=== PATIENT | male | born 1945 | race Caucasian/White ===

== ENCOUNTER 2023-08-18 13:57 | Outpatient (CLI) | payer MEDICARE, SELFPAY ==
[2023-08-18 15:16] LABS: Basophils Absolute Auto 0.1 K/mm3 (0.0-0.1); Basophils Percent Auto 1.1 % (0.2-1.2); Eosinophils Absolute Auto 0.5 K/mm3 (0-0.3); Eosinophils Percent Auto 6.8 % (0-4.4); Hematocrit 38.9 % (42.0-52.0); Immature Granulocyte Absolute 0.02 K/mm3 (0.00-0.031); Immature Granulocyte Percent A 0.3 % (0-0.5); Lymphocytes Absolute Auto 2.51 K/mm3 (0.9-3.2); Lymphocytes Percent Auto 35.6 % (18.3-44.2); Mean Corpuscular HGB Conc 33.4 g/dl (32-36); Mean Corpuscular Hemoglobin 32.1 pg (26-34); Mean Platelet Volume 9.6 fl (7.4-10.4); Monocytes Absolute Auto 0.4 K/mm3 (0.1-0.6); Monocytes Percent Auto 5.2 % (2.6-8.5); Neutrophils Absolute Auto 3.6 K/mm3 (1.3-6.7); Platelet Count Result 279 k/mm3 (150-375); Red Blood Count 4.05 M/mm3 (4.6-6.20); Red Cell Distribution Width 13.2 % (11.5-14.5); White Blood Count 7.1 K/mm3 (4.5-10.0)
[2023-08-18 15:24] LABS: Urine Cotinine NEGATIVE
[2023-08-18 15:41] LABS: Albumin Level 4.5 g/dL (3.5-5.1); Estimated Glomerular Filt Rate > 60; Glucose 99 mg/dL (65-110)
[2023-08-18 15:43] LABS: Hemoglobin A1C 5.4 % (<5.7)
== END 2023-08-18 13:58 | disposition home or self-care (01) ==
LOC: ANHSURGERY 14:04
PROVIDERS: PCP Internal Medicine; Visit Provider Orthopaedic Surgery
DX: Z01.818 Encounter for other preprocedural examination (principal); M17.12 Unilateral primary osteoarthritis, left knee
CPT/HCPCS: 80307; 82040; 82565; 82947; 83036; 85025; 86850; 86900; 86901

== ENCOUNTER 2023-08-24 00:26 | Day surgery (SDC) | payer MEDICARE, SELFPAY ==
--- NOTE | 2023-08-18 13:39 | PC.NURSE ---
PRE-OP INSTRUCTIONS, PLEASE READ CAREFULLY Report to the Outpatient Waiting Room, entrance under the green pavilion located off [facility], at time _0600_ on date _08/24/23_. Planned Procedure Time: _0730_. PACK A SMALL OVERNIGHT BAG AND LEAVE IN THE CAR ALONG WITH YOUR WALKER Time changes happen often and if your time is changed the preop area will call you the afternoon before. - You and your visitor will be asked to self-screen and do not enter if you have any COVID symptoms. - A mask is optional within the hospital at this time. -VISITING HOURS 8AM-8PM Patients may have clear liquids (water, carbonated beverages, clear teas, apple juice) until 3 hours prior to surgery (0430 AM) with a maximum of 20 ounces. - No food from midnight until time of surgery Take the following medications with a SIP of water the morning of surgery: _AMLODIPINE, & DIAZEPAM, PAIN PILL IF NEEDED_ DO NOT STOP ANY OF YOUR OTHER PRESCRIPTION MEDICATIONS PRIOR TO SURGERY ?EXCEPT THE FOLLOWING Medications to discontinue per physician ___N/A___, Date to take last dose Please no make-up, nail venezuelan, hairspray, perfume, deodorant, or body powder the day of surgery. No jewelry (including any body piercings) or valuables the day of surgery, leave them at home. Please take a shower or bath the night before, or the morning of, surgery with an antibacterial soap. Wear comfortable, loose fitting clothing. - Jewelry must be removed prior to entering the operating room. Rings and piercings that are not removed may be cut off. - The hospital will not accept responsibility for valuables. - Please leave all valuables, including medications, at home the day of surgery. If you are going home after surgery, a licensed drivers' cash clerk must drive you home. - NO public transportation without another adult if you receive anesthesia. - We recommend that an adult stay with you for 24 hours following discharge. - We also recommend that you do not drive, make important decision, drink alcoholic beverages, or take any drugs that were not prescribed by your health care provider for at least 24 hours after your discharge time. Follow any additional instructions given to you from your surgeon. If you or anyone in your household have experienced Covid symptoms in the past week, please notify your surgeon or the nurse liaison at the phone number below for possible testing. Instructions given to _PATIENT & SPOUSE_and asked if any additional questions and then verbalized understanding. Patient advised to call surgeon office or pre surgery nurse liaison [phone] if any additional questions.
[2023-08-18 14:21] VITALS: BP 172/64; PULSE 60; RESP 20; TEMP 37.1; O2SAT 97; BMI 39.9
--- NOTE | 2023-08-20 15:32 | PM.IMHP ---
H&P: HPI History of Present Illness Date/Time: 08/20/23 15:32 Chief Complaint: Pain and osteoarthritis LEFT Knee Review of Systems Musculoskeletal: Musculoskeletal: Reports arthralgias, Reports joint swelling and Reports stiffness REPLACED BY [facility] Past Medical History Medical History (Updated 08/20/23 @ 15:35 by Jovan Galeano MD) Heart disease Hyperlipidemia Hypertension Prostate disorder Surgical History Surgical History History of appendectomy History of back surgery History of knee surgery left Family History Family History Father Cancer Sibling Cancer Leukemia Mother Heart disease Social History Social History Smoking status: Former smoker Tobacco type: cigarettes Second hand tobacco smoke exposure: No Smoking end date: 03/16/74 Additional smoking assessment comments: UNABLE TO RECALL SMOKING HX-DENIES ALL FORMS OF TOBACCO USE Alcohol intake: never Substance use: never Substance use type: does not use Do You Feel Safe in your Home?: Yes Lack of Transportation: No Lack of Food: Never True Current Housing: I Have Housing Concerned About Future Housing: No Difficulty Paying Gas/Electric Bills: No Difficulty Paying for Meds: No Currently Unemployed: No Education: High School Diploma/GED Difficulty w/ Childcare or Family Care: No Living arrangements: with family Occupation/Education: retired Spiritual care concerns: No Meds Home Medications and Allergies Home Medications Medication Instructions Recorded Confirmed Type amlodipine 10 mg tablet 10 mg PO DAILY 01/14/23 08/18/23 History atorvastatin 40 mg tablet 40 mg PO DAILY 01/14/23 08/18/23 History diazepam 5 mg tablet 5 mg PO BID PRN Anxiety 01/14/23 08/18/23 History fenofibrate 160 mg tablet 160 mg PO DAILY 01/14/23 08/18/23 History finasteride 5 mg tablet 5 mg PO DAILY 01/14/23 08/18/23 History hydrocodone 10 mg-acetaminophen 1 tablet PO Q6H PRN Pain 01/14/23 08/18/23 History 325 mg tablet tamsulosin 0.4 mg capsule 0.4 mg PO QHS 01/14/23 08/18/23 History losartan 50 mg tablet 50 mg DAILY 08/18/23 08/18/23 History Allergies Allergy/AdvReac Type Severity Reaction Status Date / Time No Known Allergies Allergy Verified 08/18/23 14:15 Exam Narrative: Patient has pain with manipulation. ROM 5-110. Varus deformity. NVI Eyes: General: appearance normal, both eyes and all related structures Neck: Neck: supple Resp: Effort & Inspection: normal respiratory effort Cardio: Rate: regular rate Rhythm: regular rhythm Assessment and Plan Assessment and plan (1) Osteoarthritis of knees, bilateral: Code(s): M17.0 - Bilateral primary osteoarthritis of knee Status: Acute (2) Osteoarthritis of left knee: Code(s): M17.12 - Unilateral primary osteoarthritis, left knee Status: Acute Assessment and Plan: Patient has Osteoarthritis Left knee. He has failed conservative treatment. Will proceed with LEFT TOTAL KNEE ARTHROPLASTY. Discussed risks, benefits, limitations and alternatives in detail. He agrees and understands.
[2023-08-24] VITALS (17 sets, daily range): BP systolic 145–168; BP diastolic 42–71; PULSE 66–81; RESP 12–18; TEMP 36.1–37.2; O2SAT 94–100
--- NOTE | ~2023-08-24 | XR_ITS ---
Left Knee Technique: Portable AP and crosstable lateral views Clinical History: Status post TKR Findings: Patient is status post total knee replacement. Orthopedic hardware alignment appears anatom ic. No hardware complication is evident. Subcutaneous emphysema and swelling is likely postoperative in nature. No acute osseous fracture is seen. Impression: Status post total knee replacement, without evidence of hardware complication. Reviewed, dictated and finalized at location . Impression: Status post total knee replacement, without evidence of hardware complication.
[2023-08-24] MEDS: LACTATED RINGERS 1,000 ML 30 ML IV CONT ×2 (06:10→10:08)
[2023-08-24] MEDS: VANCOMYCIN 1,750 MG/NS 500 ML BAG 250 MG IVPB (06:10)
[2023-08-24] MEDS: ACETAMINOPHEN 500 MG TABLET 1000 MG PO (06:30)
[2023-08-24] MEDS: TRANEXAMIC ACID 1,000MG/ISO100 1,000 MG/100 ML BAG 200 MG IVPB (06:30)
--- NOTE | 2023-08-24 06:44 | WPDHPUPDATE1 ---
History and Physical Update Update Date/Time: 08/24/23 06:44 History and Physical has been reviewed, including an updated exam of the patient. There are NO changes in the patient's condition. Risks, benefits, and alternatives have been discussed and questions answered. Patient agrees to proceed with procedure.
--- NOTE | 2023-08-24 06:56 | WPDANESEPPF ---
Anes - Initial Pre Proc Eval Procedure: Operation Date: 08/24/23 07:30 Proposed Procedures p Left Total Knee Arthroplasty - Jovan Galeano MD Date/Time: 08/24/23 06:56 Surgeon: Jovan Galeano MD Pre Op Diagnosis: O A Lt Knee Patient Data Age: 78 Gender: M Height: 1.73 m Weight: 119.8 kg Last Vital Signs Temp 98.8 F 08/18/23 14:21 Pulse 60 08/18/23 14:21 Resp 20 08/18/23 14:21 BP 172/64 H 08/18/23 14:21 Pulse Ox 97 08/18/23 14:21 O2 Del Method Room Air 08/18/23 14:21 Allergies Allergy/AdvReac Type Severity Reaction Status Date / Time No Known Allergies Allergy Verified 08/18/23 14:15 Home Medications Medication Instructions Recorded Confirmed Type amlodipine 10 mg tablet 10 mg PO DAILY 01/14/23 08/18/23 History atorvastatin 40 mg tablet 40 mg PO DAILY 01/14/23 08/18/23 History diazepam 5 mg tablet 5 mg PO BID PRN Anxiety 01/14/23 08/18/23 History fenofibrate 160 mg tablet 160 mg PO DAILY 01/14/23 08/18/23 History finasteride 5 mg tablet 5 mg PO DAILY 01/14/23 08/18/23 History hydrocodone 10 mg-acetaminophen 1 tablet PO Q6H PRN Pain 01/14/23 08/18/23 History 325 mg tablet tamsulosin 0.4 mg capsule 0.4 mg PO QHS 01/14/23 08/18/23 History losartan 50 mg tablet 50 mg DAILY 08/18/23 08/18/23 History rivaroxaban 10 mg tablet (Xarelto) 10 mg PO DAILY PE prophylaxis s/p 08/21/23 Rx joint replacement #10 tabs Patient hx anesthesia problems: none Family hx anesthesia problems: none Results Review: All pre-operative results and documents have been reviewed as part of the pre-operative evaluation. [facility] Past Medical History Medical History (Updated 08/20/23 @ 15:35 by Jovan Galeano MD) Heart disease Hyperlipidemia Hypertension Prostate disorder Surgical History Surgical History History of appendectomy History of back surgery History of knee surgery left Family History Family History Father Cancer Sibling Cancer Leukemia Mother Heart disease Social History Social History Smoking status: Former smoker Tobacco type: cigarettes Second hand tobacco smoke exposure: No Smoking end date: 03/16/74 Additional smoking assessment comments: UNABLE TO RECALL SMOKING HX-DENIES ALL FORMS OF TOBACCO USE Alcohol intake: never Substance use: never Substance use type: does not use Do You Feel Safe in your Home?: Yes Lack of Transportation: No Lack of Food: Never True Current Housing: I Have Housing Concerned About Future Housing: No Difficulty Paying Gas/Electric Bills: No Difficulty Paying for Meds: No Currently Unemployed: No Education: High School Diploma/GED Difficulty w/ Childcare or Family Care: No Living arrangements: with family Occupation/Education: retired Spiritual care concerns: No Anes - Eval Final PreProcedure Day of Procedure 08/24/23 06:56 Patient weight: overweight Heart: regular rate and rhythm Lungs: clear to auscultation Airway: Mallampati scale and special considerations (Edentulous. ) Neurological: alert and oriented Last oral intake: >/= 8 hours ASA classification: II Emergent: no Anesthetic plan: proceed Anesthesia type and monitoring: general ETT Other findings: EKG w NSR. HTN, hyperlipidemia, noncompliant w CPAP. Results Review: All pre-operative results and documents have been reviewed as part of the pre-operative evaluation. Informed Consent: The patient's anesthetic plan and its attendant risks and benefits were discussed with the patient/family/POA. Questions were solicited and answers provided to the satisfaction of the patient/family/POA.
[2023-08-24] MEDS: SODIUM CHLORIDE 0.9% IV 37.7 ML, MORPHINE SULFATE INJ (*CRX) 2 MG, ROPivacaine HCL 1% 2... INFILTRATE (07:30)
[2023-08-24] MEDS: ceFAZolin 3 GM/D5W 100 ML 100 ML IVPB (07:38)
--- NOTE | 2023-08-24 07:39 | WPDANESPNB ---
Anes - Peripheral Nerve Block Date/Time: 08/24/23 07:39 I have discussed with the patient/family/POA the placement of a peripheral nerve block for post-operative pain management, including associated risks, benefits, complications, and side effects. Alternative methods of post-operative analgesia were detailed. Questions were solicited and answers provided to the satisfaction of the patient/family/POA. Time-Out: A pre-procedural Time-Out was completed immediately before starting the procedure and confirmed: Patient Identification, Site, Procedure, Patient Position and the Availability of Requisite Equipment. Clinical Indications: Acute post-operative pain management requested by the operative surgeon. Nerve Block Insertion Note Anes-nerve block: adductor canal left Patient position: supine Skin prep: chlorhexidine Needle: 22 gauge, stimulating, insulated echogenic needle. Needle length: 80 mm Technique: ultrasound Injectate: other (Bupiv 0.5% 15 mls. ) Observations: tolerated well Complications: none Procedure start time:: 724 Procedure end time:: 729
--- NOTE | 2023-08-24 09:37 | W.PM.PROC2 ---
Procedure Note - Detailed Date of Procedure 08/24/23 Pre-op Diagnosis Osteoarthritis Left Knee Post-op Diagnosis Same Procedure Performed LEFT total knee arthroplasty Surgeon Jovan Galeano MD Anesthesia General Indications Pain and Arthritis Description of Procedure The patient was brought to operating room #9. A general anesthetic was administered. Placed on the operating table and sterilely prepped and draped in usual manner. A longitudinal incision was made. Tourniquet inflated to 300 mmHg for a total of 60 minutes. Dissection was carried down to the fascia. Medial parapatellar incision was made and the patella subluxated laterally. Patella cut from 28 to 18 mm and sized for a 37 mm button. The tibia was cut perpendicular to the long axis and femur cut in 5 degrees of valgus. A 72.5 femur trialed. 75 tibia was felt to fit the best. The soft tissues balanced, hemostasis obtained. All [address], 75 tibia, 72.5 femur, 37 mm patella, and 11 mm poly. Motion was 0-125 degrees with good stability in both flexion and extension. The wound was closed with #1 Vicryl, #1 Quill, 2-0 Vicryl and kristine. Implants [employer] Estimated Blood Loss 200 Drains No Packing No Pathology None sent Complications No immediate complications Condition Stable Disposition PACU [facility] Billing Surgery - Charge Forward: Surgery Billing ([id number] Total Knee)
[2023-08-24] MEDS: TRANEXAMIC ACID 1,000 MG/10 ML AMPUL 1000 MG IV PUSH (09:41)
[2023-08-24] MEDS: ceFAZolin SODIUM 1 GM VIAL 2 GM IV PUSH (09:45)
--- NOTE | 2023-08-24 10:38 | SUR.PHASEI ---
1038: Simple mask removed.
[2023-08-24] MEDS: fentaNYL CITRATE INJ (*CRX) 100 MCG/2 ML VIAL 25 MCG IV PUSH ×4 (10:43→11:11)
--- NOTE | 2023-08-24 11:47 | ADMGEN ---
This patient, Osei Perkins, was admitted to Medical Room 255-01. Patient/family oriented to hospital policies and general routines including ID bracelet, bed and alarms, visiting hours, pain management, procedures, bathroom and other care routines, personal items, smoking policy, room service/diet, and visiting hours. Information on how to activate the Rapid Response Team has been discussed. Patient/Family are encouraged to report perceived risks to care and to ask questions if they do not understand what they are told or what they should do.
[2023-08-24] MEDS: HYDROcodone/acetaminophen (*CRX) 10-325 MG TABLET 1 TAB PO ×2 (13:40→19:49)
--- NOTE | 2023-08-24 14:55 | PM.IMCN ---
Assessment and Plan Assessment and plan (1) Osteoarthritis of left knee: Code(s): M17.12 - Unilateral primary osteoarthritis, left knee Status: Acute (2) Morbid obesity: Code(s): E66.01 - Morbid (severe) obesity due to excess calories Status: Acute (3) Prostate disorder: Code(s): N42.9 - Disorder of prostate, unspecified Status: Acute (4) Hyperlipidemia: Code(s): E78.5 - Hyperlipidemia, unspecified Status: Acute (5) Hypertension: Code(s): I10 - Essential (primary) hypertension Status: Acute Plan LT Knee osteoarthritis Left knee total arthroplasty 08/23 pain control cbc/bmp in the am PT/OT PPI NSAIDS SCD's Eliquis for DVT prophylaxis Incentive spirometer while awake Hypertension Mild hypertensive Resume patient's losartan and amlodipine BP per unit protocol likely secondary to pain Hydralazine p.r.n. if needed HX HLD: Resumed home medications HX BPH: Resumed Flomax and Proscar monitor for urinary retention Code status: Full code per patient DVT prophylaxis: Eliquis Stress ulcer prophylaxis: Protonix 40 daily PT/OT notes: PT/OT Disposition: Patient was admitted to the medical unit post surgical left knee arthroplasty tolerated procedure well is working with PT/OT with well-controlled pain hospitalist consulted for medical management he has had some hypertension likely secondary to pain resumed home BP medications can add hydralazine if needed. HPI Date of Consult Consult date: 08/24/23 Requesting Physician: Jovan Galeano MD Primary Care Provider: Gurpreet Dela Cruz, Consult Narrative Reason for consult: Medical management Narrative: Osei Pekrins is a 78 year old male who was admitted for osteoarthritis of the left knee and underwent a total left knee arthroplasty with Dr. Galeano earlier today. Patient does report past medical history of hypertension, HLD, and BPH. Patient seen resting in bed in no acute distress surgical site wrapped no signs of erythema or bleeding reports pain at a 4/10. Patient did have some hypertension last BP 164/42, home BP medications resumed will add p.r.n. hydralazine for systolic over 160. Other vitals stable temp of 97.3?, heart rate 81 respirations 16 and 96% SpO2 on room air. Patient up and ambulatory with a wheeled walker and PT/OT. Of note patient is hard of hearing Review of Systems Review of Systems: All systems reviewed & are unremarkable except as noted in HPI and below PMFSH Past Medical History Medical History (Updated 08/24/23 @ 15:15 by Cele Wisdom APRN) Heart disease Hyperlipidemia Hypertension Prostate disorder Surgical History Surgical History History of appendectomy History of back surgery History of knee surgery left Family History Family History Father Cancer Sibling Cancer Leukemia Mother Heart disease Social History Social History Smoking status: Never smoker Tobacco type: cigarettes Second hand tobacco smoke exposure: No Smoking end date: 03/16/74 Additional smoking assessment comments: UNABLE TO RECALL SMOKING HX-DENIES ALL FORMS OF TOBACCO USE Alcohol intake: never Substance use: never Substance use type: does not use Do You Feel Safe in your Home?: Yes Lack of Transportation: No Lack of Food: Never True Current Housing: I Have Housing Concerned About Future Housing: No Difficulty Paying Gas/Electric Bills: No Difficulty Paying for Meds: No Currently Unemployed: No Education: High School Diploma/GED Difficulty w/ Childcare or Family Care: No Living arrangements: with family Occupation/Education: retired Spiritual care concerns: No Meds Home Medications and Allergies
[2023-08-24] MEDS: CELECOXIB 200 MG CAPSULE PO (16:54)
[2023-08-24] MEDS: RIVAROXABAN 10 MG TABLET PO (16:54)
[2023-08-24] MEDS: ceFAZolin 2 GM/D5W 50 ML 2 GM/50 ML BAG IVPB ×2 (16:54→23:59)
[2023-08-24] MEDS: SENNA/DOCUSATE SODIUM TABLET 2 TAB PO (16:54)
[2023-08-24] MEDS: TAMSULOSIN HCL 0.4 MG CAPSULE PO (19:50)
[2023-08-24] MEDS: CYCLOBENZAPRINE HCL 10 MG TABLET PO (19:50)
[2023-08-24] MEDS: FAMOTIDINE 20 MG TABLET PO (19:50)
[2023-08-24] MEDS: HYDROcodone/acetaminophen (*CRX) 5-325 MG TABLET 1 TAB PO (23:59)
[2023-08-25 00:45] VITALS: BP 157/52; PULSE 69; RESP 16; TEMP 36.9; O2SAT 95
[2023-08-25 04:38] VITALS: BP 155/64; PULSE 78; RESP 16; TEMP 36.6; O2SAT 97
[2023-08-25] MEDS: HYDROcodone/acetaminophen (*CRX) 10-325 MG TABLET 1 TAB PO ×2 (04:42→11:00)
[2023-08-25 05:33] LABS: Basophils Percent Auto 0.1 % (0.2-1.2); Hematocrit 33.1 % (42.0-52.0); Hemoglobin 10.9 g/dL (14.0-18.0); Immature Granulocyte Absolute 0.06 K/mm3 (0.00-0.031); Immature Granulocyte Percent A 0.5 % (0-0.5); Lymphocytes Absolute Auto 0.99 K/mm3 (0.9-3.2); Lymphocytes Percent Auto 8.6 % (18.3-44.2); Mean Corpuscular HGB Conc 32.9 g/dl (32-36); Mean Corpuscular Hemoglobin 31.6 pg (26-34); Mean Corpuscular Volume 95.9 fl (80-100); Mean Platelet Volume 9.9 fl (7.4-10.4); Monocytes Absolute Auto 0.6 K/mm3 (0.1-0.6); Monocytes Percent Auto 5.4 % (2.6-8.5); Neutrophils Absolute Auto 9.9 K/mm3 (1.3-6.7); Neutrophils Percent Auto 85.4 % (45.5-73.1); Platelet Count Result 271 k/mm3 (150-375); Red Blood Count 3.45 M/mm3 (4.6-6.20); Red Cell Distribution Width 13.2 % (11.5-14.5); White Blood Count 11.6 K/mm3 (4.5-10.0)
[2023-08-25 06:02] LABS: Anion Gap 5 mmol/L (4-12); Blood Urea Nitrogen 18 mg/dL (9-20); Carbon Dioxide 25 mmol/L (22-30); Chloride 108 mmol/L (98-107); Estimated CRCL calculation 64 ml/min; Estimated Glomerular Filt Rate > 60; Glucose 143 mg/dL (65-110); Potassium 3.9 mmol/L (3.4-5.0); Sodium 138 mmol/L (137-145)
--- NOTE | 2023-08-25 06:56 | PM.PNORT ---
Progress Note: A&P Assessment and Plan (1) Osteoarthritis of left knee: Code(s): M17.12 - Unilateral primary osteoarthritis, left knee Status: Acute Assessment and Plan: POD #1 S/P TKA for Osteoarthritis. Mobilize today. (2) History of knee replacement procedure of left knee: Code(s): Z96.652 - Presence of left artificial knee joint Status: Acute Subjective Subjective Date/Time Seen: 08/25/23 06:56 Post Op day: 1 Principal diagnosis: Left Total Knee for Osteoarthritis Review of Systems Musculoskeletal: Musculoskeletal: Reports arthralgias, Reports joint swelling and Reports limited range of motion Exam Narrative: NVI. Wiggles toes. Dressing intact. Objective Data Vital Signs Vital Signs: Vital Signs - 24 hr 08/24/23 07:05 08/24/23 10:08 08/24/23 10:18 Temperature 98.1 F 98.9 F Pulse Rate 66 71 75 Respiratory Rate 18 13 16 Blood Pressure 168/70 H 145/59 H 148/56 H Pulse Oximetry 97 98 Oxygen Delivery Room Air Simple Face Mask Simple Face Mask Oxygen Flow Rate 6 8 08/24/23 10:20 08/24/23 10:35 08/24/23 10:50 Temperature Pulse Rate 74 70 71 Respiratory Rate 14 13 12 Blood Pressure 159/62 H 166/60 H 166/62 H Pulse Oximetry 99 100 95 Oxygen Delivery Simple Face Mask Simple Face Mask Room Air Oxygen Flow Rate 8 8 08/24/23 11:05 08/24/23 11:20 08/24/23 11:35 Temperature 99.0 F Pulse Rate 73 74 73 Respiratory Rate 12 18 12 Blood Pressure 168/60 H 162/71 H 165/57 H Pulse Oximetry 95 96 96 Oxygen Delivery Room Air Room Air Room Air Oxygen Flow Rate 08/24/23 11:50 08/24/23 12:05 08/24/23 12:35 Temperature 97 F L 98.1 F 98.0 F Pulse Rate 73 73 72 Respiratory Rate 16 16 16 Blood Pressure 155/54 H 160/46 H 154/47 H Pulse Oximetry 95 94 94 Oxygen Delivery Oxygen Flow Rate 08/24/23 13:12 08/24/23 13:35 08/24/23 14:25 Temperature 97.3 F L Pulse Rate 81 Respiratory Rate 16 Blood Pressure 164/42 H Pulse Oximetry 96 Oxygen Delivery Room Air Room Air Oxygen Flow Rate 08/24/23 15:56 08/24/23 17:24 08/24/23 11:40 Temperature 98.6 F Pulse Rate 78 Respiratory Rate 16 Blood Pressure 161/46 H Pulse Oximetry 95 97 97 Oxygen Delivery Room Air Room Air Oxygen Flow Rate 08/24/23 20:00 08/24/23 21:24 08/25/23 00:45 Temperature 98.7 F 98.5 F Pulse Rate 72 69 Respiratory Rate 18 16 Blood Pressure 157/60 H 157/52 H Pulse Oximetry 94 95 Oxygen Delivery Room Air Oxygen Flow Rate 08/25/23 04:38 Temperature 97.8 F Pulse Rate 78 Respiratory Rate 16 Blood Pressure 155/64 H Pulse Oximetry 97 Oxygen Delivery Oxygen Flow Rate Intake/Output Intake/Output: Intake & Output 08/22/23 08/23/23 08/24/23 08/25/23 23:59 23:59 23:59 23:59 Intake Total 1510 400 Output Total 600 950 Balance 910 -550 Meds/Results Medications: Active Medications Generic Name Dose Route Start Last Admin Trade Name Freq PRN Reason Stop Dose Admin Hydrocodone Bitart/Acetaminophen 1 tab 08/24/23 11:39 08/25/23 04:42 Hydrocodone/Acetaminophen (*Crx) 10-325 Mg Tablet PO 1 tab Q6H PRN Administration Pain Hydrocodone Bitart/Acetaminophen 1 tab 08/24/23 11:39 08/24/23 23:59 Hydrocodone/Acetaminophen (*Crx) 5-325 Mg Tablet PO 1 tab Q4H PRN Administration Pain Rated 4-6 Amlodipine Besylate 10 mg 08/25/23 09:00 Amlodipine Besylate 5 Mg Tablet PO DAILY KT Atorvastatin Calcium 40 mg 08/25/23 09:00 Atorvastatin 40 Mg Tablet PO DAILY KT Celecoxib 200 mg 08/24/23 17:00 08/24/23 16:54 Celecoxib 200 Mg Capsule PO 200 mg BIDWM KT Administration Cyclobenzaprine HCl 10 mg 08/24/23 11:39 08/24/23 19:50 Cyclobenzaprine Hcl 10 Mg Tablet PO 10 mg Q8H PRN Administration Spasms Diphenhydramine HCl 25 mg 08/24/23 11:39 Diphenhydramine Hcl Inj 50 Mg/Ml Vial IV PUSH Q6H PRN Itching Famotidine 20 mg 08/24/23 21:00 0
--- NOTE | 2023-08-25 06:58 | PM.DS ---
DS: Admitting Diagnosis Discharge Date 08/24/23 Admitting Diagnosis Left Knee Osteoarthritis DS: Discharge Diagnosis Discharge Diagnosis (1) History of knee replacement procedure of left knee: Code(s): Z96.652 - Presence of left artificial knee joint Status: Acute Assessment and Plan: Patient underwent Left TKA for osteoarthritis. Will mobilize today and plan on discharge if ambulatory (2) Osteoarthritis of left knee: Code(s): M17.12 - Unilateral primary osteoarthritis, left knee Status: Acute DS: Summary Hospital Course Hospital Course: Patient underwent TKA for osteoarthritis. Some pain issues. Status at Discharge Functional status at discharge: uses cane/walker Time Spent with Patient Time attestation: Total time spent providing and/or coordinating discharge services: Exam Narrative: NVI. Wiggles toes. Dressing intact. DS: Data Data Completed and Pending Labs on day of discharge: Labs from last 24 hours 08/25/23 05:12 WBC 11.6 H RBC 3.45 L Hgb 10.9 L Hct 33.1 L MCV 95.9 MCH 31.6 MCHC 32.9 RDW 13.2 Plt Count 271 MPV 9.9 Immature Gran % (Auto) 0.5 Neut % (Auto) 85.4 H Lymph % (Auto) 8.6 L [place] % (Auto) 5.4 Eos % (Auto) 0.0 Baso % (Auto) 0.1 L Lymph # (Auto) 0.99 [place] # (Auto) 0.6 Eos # (Auto) 0.0 Baso # (Auto) 0.0 Abs Immat Gran (auto) 0.06 H Absolute Neuts (auto) 9.9 H Absolute Nucleated RBC 0.000 Nucleated RBC % 0.0 Sodium 138 Potassium 3.9 Chloride 108 H Carbon Dioxide 25 Anion Gap 5 BUN 18 Creatinine 1.10 Estim Creat Clear Calc 64 Estimated GFR > 60 Glucose 143 H Calcium 9.0 Discharge Plan Discharge Patient Disposition: Home, Self-Care Discharge Instructions: Dr. Jovan Galeano M.D [address] [address] POST-OPERATIVE DISCHARGE INSTRUCTIONS TOTAL KNEE ARTHROPLASTY 1. When resting, do not rest in the chair.When resting, lie on your back, with back flat on the couch or bed, with leg elevated above heart to minimize swelling. You may put a pillow under your head. . Significant swelling could indicate a blood clot and if this occurs call the office (or go to the ER) to have a venous ultrasound. Therefore, do not rest in a chair. 2. At least five times a day spend several minutes stretching your knee into flexion while sitting in the chair and also stretching your knee out straight The abilities to bend your knee fulling and straighten your knee fully are two most important knee functions to focus on during your recovery. 3. It is ok to sit in chair to eat, use the toilet and receive a guest and to do your stretching exercises, but, sitting in a chair will cause your leg to swell. Therefore, avoid additional time sitting in the chair. and don't rest in the chair. 4. Wound Care: Nursing will give you an additional Mepilex dressing at the time of discharge. Patient to remove the dressing and apply a new Mepilex dressing at home 7 days after surgery and leave the dressing on until seen in office. 5. May shower with a Mepilex dressing in place.The water will run off the dressing. 6. Unless you are told otherwise, you may put full weight on your operated leg. Use a walker for balance and practice walking as normally as you can, ideally for a few minutes every hour while you are awake. 7. I would advise against putting ice packs on your knee incision. Ice constricts blood flow which can impar healing of the knee incision. IMPORTANT: Remember not to sit in the chair for more than 30 minutes at a time. As a rule, during the first 14 days after surgery, only sit in the chair to work on the chair knee bending stretch exercise, for meals or for use of the restroom. Sitting in the chair promotes significant swelling in the knee and leg which will make your knee stiff and more painful and which simulates having a blood clot in the veins of the leg. If this type of
[2023-08-25 08:35] VITALS: BP 168/52; PULSE 64; RESP 18; TEMP 36.3; O2SAT 98
[2023-08-25] MEDS: FINASTERIDE 5 MG TABLET PO (08:42)
[2023-08-25] MEDS: ATORVASTATIN 40 MG TABLET PO (08:42)
[2023-08-25] MEDS: FENOFIBRATE 160 MG TABLET PO (08:42)
[2023-08-25] MEDS: CELECOXIB 200 MG CAPSULE PO (08:42)
[2023-08-25] MEDS: PANTOPRAZOLE 40 MG TABLET PO (08:42)
[2023-08-25] MEDS: LOSARTAN POTASSIUM 50 MG TABLET PO (08:42)
[2023-08-25] MEDS: SENNA/DOCUSATE SODIUM TABLET 2 TAB PO (08:42)
[2023-08-25] MEDS: amLODIPine BESYLATE 5 MG TABLET 10 MG PO (08:42)
[2023-08-25] MEDS: FAMOTIDINE 20 MG TABLET PO (08:42)
[2023-08-25] MEDS: ceFAZolin 2 GM/D5W 50 ML 2 GM/50 ML BAG IVPB (08:43)
--- NOTE | 2023-08-25 12:07 | P.PNAN_ITS ---
Anes - Prog Note Post-Op Date/Time: 08/25/23 12:07 Cardiovascular status: normal Respiratory status: normal Airway patency: baseline Mental status: baseline Post-Op hydration status: normal Vital Signs: Last Vital Signs Temp 36.3 C L 08/25/23 08:35 Pulse 64 08/25/23 08:35 Resp 18 08/25/23 08:35 BP 168/52 H 08/25/23 08:35 Pulse Ox 98 08/25/23 08:35 O2 Del Method Room Air 08/25/23 08:45 O2 Flow Rate 8 08/24/23 10:35 Pain Score (VAS): 0 I/O: Intake & Output 08/24/23 08/25/23 08/25/23 23:59 07:59 15:59 Intake Total 290 400 240 Output Total 950 Balance 290 -550 240 Laboratory Tests 08/25/23 05:12 08/25/23 05:12 08/25/23 05:12 WBC 11.6 H RBC 3.45 L Hgb 10.9 L Hct 33.1 L MCV 95.9 MCH 31.6 MCHC 32.9 RDW 13.2 Plt Count 271 MPV 9.9 Immature Gran % (Auto) 0.5 Neut % (Auto) 85.4 H Lymph % (Auto) 8.6 L [place] % (Auto) 5.4 Eos % (Auto) 0.0 Baso % (Auto) 0.1 L Lymph # (Auto) 0.99 [place] # (Auto) 0.6 Eos # (Auto) 0.0 Baso # (Auto) 0.0 Abs Immat Gran (auto) 0.06 H Absolute Neuts (auto) 9.9 H Absolute Nucleated RBC 0.000 Nucleated RBC % 0.0 Sodium 138 Potassium 3.9 Chloride 108 H Carbon Dioxide 25 Anion Gap 5 BUN 18 Creatinine 1.10 Estim Creat Clear Calc 64 Estimated GFR > 60 Glucose 143 H Calcium 9.0 Post-procedural complaints: none Patient Feedback: Patient satisfied with anesthetic care.
== END 2023-08-25 12:07 | disposition home or self-care (01) ==
LOC: ANHSURGERY 05:41 → ANH2MED 11:45
PROVIDERS: PCP Internal Medicine; Visit Provider Orthopaedic Surgery
PROC: (CPT 27447; principal; 2023-08-24 07:30)
DX: M17.12 Unilateral primary osteoarthritis, left knee (principal); G89.18 Other acute postprocedural pain; I11.9 Hypertensive heart disease without heart failure; E78.5 Hyperlipidemia, unspecified; N42.9 Disorder of prostate, unspecified; Z87.891 Personal history of nicotine dependence; E66.01 Morbid (severe) obesity due to excess calories; Z68.41 Body mass index [BMI] 40.0-44.9, adult
CPT/HCPCS: 27447; 64447; 36415; 73560; 80048; 85025; 97110; 97116; 97161; 97166; 97530; 97535; A9270; C1713; C1776; J0171; J0690; J1100; J1170; J1885; J2250; J2270; J2405; J2704; J2795; J3010; J3370; J7120

== ENCOUNTER 2024-01-01 11:40 | Outpatient (CLI) | payer MEDICARE, SELFPAY ==
[2024-01-01 12:58] LABS: Basophils Absolute Auto 0.1 K/mm3 (0.0-0.1); Eosinophils Absolute Auto 0.3 K/mm3 (0-0.3); Eosinophils Percent Auto 4.5 % (0-4.4); Hematocrit 40.2 % (42.0-52.0); Hemoglobin 13.4 g/dL (14.0-18.0); Immature Granulocyte Absolute 0.02 K/mm3 (0.00-0.031); Immature Granulocyte Percent A 0.3 % (0-0.5); Lymphocytes Absolute Auto 1.34 K/mm3 (0.9-3.2); Lymphocytes Percent Auto 22.5 % (18.3-44.2); Mean Corpuscular HGB Conc 33.3 g/dl (32-36); Mean Corpuscular Hemoglobin 30.4 pg (26-34); Mean Corpuscular Volume 91.2 fl (80-100); Mean Platelet Volume 9.7 fl (7.4-10.4); Monocytes Absolute Auto 0.4 K/mm3 (0.1-0.6); Monocytes Percent Auto 6.2 % (2.6-8.5); Neutrophils Absolute Auto 3.9 K/mm3 (1.3-6.7); Neutrophils Percent Auto 65.5 % (45.5-73.1); Platelet Count Result 338 k/mm3 (150-375); Red Blood Count 4.41 M/mm3 (4.6-6.20); Red Cell Distribution Width 14.3 % (11.5-14.5)
[2024-01-01 13:05] LABS: Hemoglobin A1C 5.9 % (<5.7)
[2024-01-01 13:06] LABS: Urine Cotinine NEGATIVE
[2024-01-01 13:08] LABS: Albumin Level 4.5 g/dL (3.5-5.1); Estimated Glomerular Filt Rate > 60; Glucose 107 mg/dL (65-110)
[2024-01-01 14:08] LABS: MRSA (PCR) NOT DETECTED (NOT DETECTE)
== END 2024-01-01 11:41 | disposition home or self-care (01) ==
LOC: ANHSURGERY 11:47
PROVIDERS: PCP Internal Medicine; Visit Provider Orthopaedic Surgery
DX: Z01.812 Encounter for preprocedural laboratory examination (principal); M17.11 Unilateral primary osteoarthritis, right knee
CPT/HCPCS: 80307; 82040; 82565; 82947; 83036; 85025; 86850; 86900; 86901; 87641

== ENCOUNTER 2024-01-11 00:42 | Day surgery (SDC) | payer MEDICARE, BC, SELFPAY ==
[2024-01-01 11:57] VITALS: BP 172/61; PULSE 63; RESP 16; TEMP 36.7; O2SAT 100; BMI 36.8
--- NOTE | 2024-01-01 12:14 | PC.NURSE ---
Report to the Outpatient Waiting Room, entrance under the green pavilion located off [facility], at time _06:00am___on date _01/11/24 . Planned Procedure Time: _07:30am .? Time changes happen often and if your time is changed the preop area will call you the afternoon before. - You and your visitor will be asked to self-screen and do not enter if you have any COVID symptoms. Please call surgeon if you need to reschedule. - A mask is optional within the hospital at this time. Patients may have clear liquids (water, carbonated beverages, clear teas, apple juice) until 3 hours prior to surgery with a maximum of 20 ounces. - No food from midnight until time of surgery and no smoking Take only the following medications with a SIP of water on the morning of surgery: Amlodipine, Diazepam and Hydrocodone as needed DO NOT STOP ANY OF YOUR OTHER PRESCRIPTION MEDICATIONS PRIOR TO SURGERY EXCEPT THE FOLLOWING Medications to discontinue per physician None Date to take last dose____None Please no make-up, nail yi, hairspray, perfume, deodorant, or body powder the day of surgery.? No jewelry (including any body piercings) or valuables the day of surgery, leave them at home.? Please take a shower or bath the night before, or the morning of, surgery with an antibacterial soap.? Wear comfortable, loose fitting clothing.? - Jewelry must be removed prior to entering the operating room.? Rings and piercings that are not removed may be cut off. - The hospital will not accept responsibility for valuables.? - Please leave all valuables, including medications, at home the day of surgery. If you are going home after surgery, a licensed dray truck driver must drive you home.? - NO public transportation without another adult if you receive anesthesia. - We recommend that an adult stay with you for 24 hours following discharge. - We also recommend that you do not drive, make important decision, drink alcoholic beverages, or take any drugs that were not prescribed by your health care provider for at least 24 hours after your discharge time. Follow any additional instructions given to you from your surgeon. Telephone instructions given to ___patient and asked if any additional questions and then verbalized understanding. Patient advised to call surgeon office or pre surgery nurse liaison [phone] if any additional questions.
--- NOTE | 2024-01-07 07:51 | P.HP_ITS ---
H&P: HPI History of Present Illness Date/Time: 01/07/24 07:51 Chief Complaint: Patient has osteoarthritis of the right knee. He has had a left knee replacement and done well. He would like to proceed with total knee arthroplasty on the RIGHT. Review of Systems Musculoskeletal: Musculoskeletal: Reports arthralgias, Reports joint swelling and Reports stiffness Neurologic: Reports abnormal gait [facility] Past Medical History Medical History Heart disease Hyperlipidemia Hypertension Prostate disorder Surgical History Surgical History History of appendectomy History of back surgery History of knee surgery left Family History Family History Father Cancer Sibling Cancer Leukemia Mother Heart disease Social History Social History Smoking packs per day: 0.5 Smoking cigarettes per day: 10.0 Years smoked: 10 Smoking pack-years: 5.00 Smoking status: Former smoker Tobacco type: cigarettes Second hand tobacco smoke exposure: No Smoking end date: 03/16/74 Additional smoking assessment comments: UNABLE TO RECALL SMOKING HX-DENIES ALL FORMS OF TOBACCO USE Alcohol intake: never Substance use: never Substance use type: does not use Do You Feel Safe in your Home?: Yes Lack of Transportation: No Lack of Food: Never True Current Housing: I Have Housing Concerned About Future Housing: No Difficulty Paying Gas/Electric Bills: No Difficulty Paying for Meds: No Currently Unemployed: No Education: Trade/Vocational Certificate Difficulty w/ Childcare or Family Care: No Living arrangements: with family Additional living arrangements comments: Occupation/Education: retired 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[employer] Gender identity (if verbalized by the patient): Male Spiritual care concerns: No Meds Home Medications and Allergies Home Medications Medication Instructions Recorded Confirmed Type amlodipine 10 mg tablet 10 mg PO DAILY 01/14/23 01/01/24 History atorvastatin 40 mg tablet 40 mg PO DAILY 01/14/23 01/01/24 History diazepam 5 mg tablet 5 mg PO BID PRN Anxiety 01/14/23 01/01/24 History fenofibrate 160 mg tablet 160 mg PO DAILY 01/14/23 01/01/24 History finasteride 5 mg tablet 5 mg PO DAILY 01/14/23 01/01/24 History tamsulosin 0.4 mg capsule 0.4 mg PO QHS 01/14/23 01/01/24 History losartan 50 mg tablet 50 mg DAILY 08/18/23 01/01/24 History hydrocodone 10 mg-acetaminophen 1 tablet PO Q6H PRN pain #30 tabs 08/25/23 01/01/24 Rx 325 mg tablet Allergies Allergy/AdvReac Type Severity Reaction Status Date / Time No Known Allergies Allergy Verified 01/01/24 11:55 Exam Narrative: On exam he has good motion of the knee from about 3-110 degrees. He has got significant varus deformity. His grinding crepitus pain with any motion. Neurologically he is intact. He walks with an antalgic gait. Eyes: General: appearance normal, both eyes and all related structures Neck: Neck: supple Resp: Effort & Inspection: normal respiratory effort Cardio: Rate: regular rate Rhythm: regular rhythm Radiology Reports: Comments: 12/17/23 07:04 XR knee RT 3V Routine Interpretation: AP lateral skyline view right knee demonstrates [id number] changes significant varus deformity of the right knee. He has a total knee arthroplasty on the left and excellent alignment. This report may have been done utilizing a voice recognition system. Attempts have been made to correct errors. However, there may be uncorrected grammatical, spelling, and recognition errors present. Hip/Pelvis X-Ray 01/14/23 Knee X-Ray 12/17/23 Orthopedics Result Report 12/17/23 Assessment and Plan Assessment and plan (1) Osteoarthritis of right knee: Code(s): M17.11 - Unilateral primary osteoarthritis, right knee Status: Acute Assessment and Plan: Patient has osteoarthritis of the right knee. He has failed conservative treatment. He would like to proceed with knee replacement surgery. He has done well with his left knee. Will proceed with total knee arthroplasty on the right. Discussed risks benefits limitations and alternatives in detail.
--- NOTE | 2024-01-10 15:56 | WPDANESEPP ---
Anes - Eval Pre Procedure Procedure: Operation Date: 01/11/24 07:30 Proposed Procedures p Right Total Knee Arthroplasty - Jovan Galeano MD Date/Time: 01/10/24 15:56 Pre Op Diagnosis: OA right knee Patient Data Age: 78 Gender: M Height: 1.78 m Weight: 116.3 kg Last Vital Signs Temp 36.7 C 01/01/24 11:57 Pulse 63 01/01/24 11:57 Resp 16 01/01/24 11:57 BP 172/61 H 01/01/24 11:57 Pulse Ox 100 01/01/24 11:57 O2 Del Method Room Air 01/01/24 11:57 Allergies Allergy/AdvReac Type Severity Reaction Status Date / Time No Known Allergies Allergy Verified 01/01/24 11:55 Home Medications Medication Instructions Recorded Confirmed Type amlodipine 10 mg tablet 10 mg PO DAILY 01/14/23 01/01/24 History atorvastatin 40 mg tablet 40 mg PO DAILY 01/14/23 01/01/24 History diazepam 5 mg tablet 5 mg PO BID PRN Anxiety 01/14/23 01/01/24 History fenofibrate 160 mg tablet 160 mg PO DAILY 01/14/23 01/01/24 History finasteride 5 mg tablet 5 mg PO DAILY 01/14/23 01/01/24 History tamsulosin 0.4 mg capsule 0.4 mg PO QHS 01/14/23 01/01/24 History losartan 50 mg tablet 50 mg DAILY 08/18/23 01/01/24 History hydrocodone 10 mg-acetaminophen 1 tablet PO Q6H PRN pain #30 tabs 08/25/23 01/01/24 Rx 325 mg tablet Patient hx anesthesia problems: none Family hx anesthesia problems: none Results Review: All pre-operative results and documents have been reviewed as part of the pre-operative evaluation. [facility] Past Medical History Medical History Heart disease Hyperlipidemia Hypertension Prostate disorder Surgical History Surgical History History of appendectomy History of back surgery History of knee surgery left Family History Family History Father Cancer Sibling Cancer Leukemia Mother Heart disease Social History Social History Smoking packs per day: 0.5 Smoking cigarettes per day: 10.0 Years smoked: 10 Smoking pack-years: 5.00 Smoking status: Former smoker Tobacco type: cigarettes Second hand tobacco smoke exposure: No Smoking end date: 03/16/74 Additional smoking assessment comments: UNABLE TO RECALL SMOKING HX-DENIES ALL FORMS OF TOBACCO USE Alcohol intake: never Substance use: never Substance use type: does not use Do You Feel Safe in your Home?: Yes Lack of Transportation: No Lack of Food: Never True Current Housing: I Have Housing Concerned About Future Housing: No Difficulty Paying Gas/Electric Bills: No Difficulty Paying for Meds: No Currently Unemployed: No Education: Trade/Vocational Certificate Difficulty w/ Childcare or Family Care: No Living arrangements: with family Additional living arrangements comments: Occupation/Education: retired 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
[2024-01-11] VITALS (16 sets, daily range): BP systolic 130–172; BP diastolic 45–95; PULSE 62–77; RESP 12–16; TEMP 36.4–36.9; O2SAT 95–100
--- NOTE | ~2024-01-11 | XR_ITS ---
EXAMINATION: [id number] DATE: 01/11/2024 09:57 INDICATION: Total right knee arthroplasty. Postop. TECHNIQUE: 2 views of right knee were obtained. COMPARISON: Right knee radiographs 12/17/2023 FINDINGS: There is a total right knee arthroplasty in near-anatomic alignment with patellar resurfaci ng. No fracture. There is gas in the knee joint and soft tissues, consistent with recent surgery. Ant erior skin kristine are noted. IMPRESSION: 1. Total right knee arthroplasty in near-anatomic alignment. Reviewed, dictated and finalized at location B.
--- NOTE | 2024-01-11 06:34 | P.PNAN_ITS ---
Anes - Initial Pre Proc Eval Procedure: Operation Date: 01/11/24 07:30 Proposed Procedures p Right Total Knee Arthroplasty - Jovan Galeano MD Date/Time: 01/11/24 06:34 Surgeon: Jovan Galeano MD Pre Op Diagnosis: OA right knee Patient Data Age: 78 Gender: M Height: 1.78 m Weight: 116.3 kg Last Vital Signs Temp 98.0 F 01/01/24 11:57 Pulse 63 01/01/24 11:57 Resp 16 01/01/24 11:57 BP 172/61 H 01/01/24 11:57 Pulse Ox 100 01/01/24 11:57 O2 Del Method Room Air 01/01/24 11:57 Allergies Allergy/AdvReac Type Severity Reaction Status Date / Time No Known Allergies Allergy Verified 01/01/24 11:55 Home Medications Medication Instructions Recorded Confirmed Type amlodipine 10 mg tablet 10 mg PO DAILY 01/14/23 01/01/24 History atorvastatin 40 mg tablet 40 mg PO DAILY 01/14/23 01/01/24 History diazepam 5 mg tablet 5 mg PO BID PRN Anxiety 01/14/23 01/01/24 History fenofibrate 160 mg tablet 160 mg PO DAILY 01/14/23 01/01/24 History finasteride 5 mg tablet 5 mg PO DAILY 01/14/23 01/01/24 History tamsulosin 0.4 mg capsule 0.4 mg PO QHS 01/14/23 01/01/24 History losartan 50 mg tablet 50 mg DAILY 08/18/23 01/01/24 History hydrocodone 10 mg-acetaminophen 1 tablet PO Q6H PRN pain #30 tabs 08/25/23 01/01/24 Rx 325 mg tablet Patient hx anesthesia problems: none Family hx anesthesia problems: none Results Review: All pre-operative results and documents have been reviewed as part of the pre- operative evaluation. [facility] Past Medical History Medical History Heart disease Hyperlipidemia Hypertension Prostate disorder Surgical History Surgical History History of appendectomy History of back surgery History of knee surgery left Family History Family History Father Cancer Sibling Cancer Leukemia Mother Heart disease Social History Social History Smoking packs per day: 0.5 Smoking cigarettes per day: 10.0 Years smoked: 10 Smoking pack-years: 5.00 Smoking status: Former smoker Tobacco type: cigarettes Second hand tobacco smoke exposure: No Smoking end date: 03/16/74 Additional smoking assessment comments: UNABLE TO RECALL SMOKING HX-DENIES ALL FORMS OF TOBACCO USE Alcohol intake: never Substance use: never Substance use type: does not use Do You Feel Safe in your Home?: Yes Lack of Transportation: No Lack of Food: Never True Current Housing: I Have Housing Concerned About Future Housing: No Difficulty Paying Gas/Electric Bills: No Difficulty Paying for Meds: No Currently Unemployed: No Education: Trade/Vocational Certificate Difficulty w/ Childcare or Family Care: No Living arrangements: with family Additional living arrangements comments: Occupation/Education: retired 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 ) Neurological: alert and oriented Last oral intake: >/= 8 hours ASA classification: III Emergent: no Anesthetic plan: proceed Anesthesia type and monitoring: general ETT and standard monitoring Results Review: All pre-operative results and documents have been reviewed as part of the pre- operative evaluation. HTN, hyperlipidemia, long time exsmoker. EKG w NSR. Informed Consent: The patient's anesthetic plan and its attendant risks and benefits were discussed with the patient/family/POA. Questions were solicited and answers provided to the satisfaction of the patient/family/POA.
[2024-01-11] MEDS: ACETAMINOPHEN 500 MG TABLET 1000 MG PO (06:45)
[2024-01-11] MEDS: LACTATED RINGERS 1,000 ML 30 ML IV CONT ×2 (06:45→10:06)
[2024-01-11] MEDS: TRANEXAMIC ACID 1,000MG/ISO100 1,000 MG/100 ML BAG 200 MG IVPB (06:45)
--- NOTE | 2024-01-11 07:01 | WPDHPUPDATE1 ---
History and Physical Update Update Date/Time: 01/11/24 07:01 History and Physical has been reviewed, including an updated exam of the patient. There are NO changes in the patient's condition. Risks, benefits, and alternatives have been discussed and questions answered. Patient agrees to proceed with procedure.
[2024-01-11] MEDS: VANCOMYCIN 1,750 MG/NS 500 ML BAG 250 MG IVPB (07:10)
[2024-01-11] MEDS: ceFAZolin 2 GM/D5W 50 ML 2 GM/50 ML BAG IVPB ×3 (07:45→23:36)
[2024-01-11] MEDS: SODIUM CHLORIDE 0.9% IV 37.7 ML, MORPHINE SULFATE INJ (*CRX) 2 MG, ROPivacaine HCL 1% 2... INFILTRATE (08:00)
--- NOTE | 2024-01-11 08:06 | WPDANESPNB ---
Anes - Peripheral Nerve Block Date/Time: 01/11/24 08:06 I have discussed with the patient/family/POA the placement of a peripheral nerve block for post-operative pain management, including associated risks, benefits, complications, and side effects. Alternative methods of post-operative analgesia were detailed. Questions were solicited and answers provided to the satisfaction of the patient/family/POA. Time-Out: A pre-procedural Time-Out was completed immediately before starting the procedure and confirmed: Patient Identification, Site, Procedure, Patient Position and the Availability of Requisite Equipment. Clinical Indications: Acute post-operative pain management requested by the operative surgeon. Nerve Block Insertion Note Anes-nerve block: adductor canal right Patient position: supine Skin prep: chlorhexidine Needle: 22 gauge, stimulating, insulated echogenic needle. Needle length: 80 mm Technique: ultrasound Injectate: other (Bupiv 0.5%, 15 mls. ) Observations: tolerated well Complications: none Procedure start time:: 723 Procedure end time:: 728
[2024-01-11] MEDS: TRANEXAMIC ACID 1,000 MG/10 ML AMPUL 1000 MG IV PUSH (09:02)
[2024-01-11] MEDS: ceFAZolin SODIUM 1 GM VIAL 2 GM IV PUSH (09:03)
--- NOTE | 2024-01-11 09:13 | W.PM.PROC2 ---
Procedure Note - Detailed Date of Procedure 01/11/24 Pre-op Diagnosis Osteoarthritis RIGHT knee Post-op Diagnosis Same Procedure Performed RIGHT TOTAL KNEE ARTHROPLASTY Surgeon Jovan Galeano MD Stem Cleaning Machine Feeder Ap Mon Anesthesia General Indications Pain and Arthritis Description of Procedure The patient was brought to operating room #8. A general anesthetic was administered. Placed on the operating table and sterilely prepped and draped in usual manner. A longitudinal incision was made. Tourniquet inflated to 300 mmHg for a total of 57 minutes. Dissection was carried down to the fascia. Medial parapatellar incision was made and the patella subluxated laterally. Significant difficulty was encountered trying to gonzalo the patella [place] of the large size, and his tissues were stiff. I had to cut the femur and the tibia first. Patella cut from 27 to 17 mm and sized for a 37 mm button. The tibia was cut perpendicular to the long axis and femur cut in 5 degrees of valgus. A 72.5 femur trialed. 75 tibia was felt to fit the best. The soft tissues balanced, hemostasis obtained. All [address], 75 tibia, 72.5 femur, 27 mm patella, and 11 mm poly. Motion was 0-125 degrees with good stability in both flexion and extension. The wound was closed with #2 Vicryl, 2-0 Vicryl and kristine. [employer] Estimated Blood Loss 200 Drains No Packing No Pathology None sent Complications No immediate complications Condition Stable Disposition PACU [facility] Billing Surgery - Charge Forward: Surgery Billing (TKA [id number])
[2024-01-11] MEDS: fentaNYL CITRATE INJ (*CRX) 100 MCG/2 ML VIAL 25 MCG IV PUSH ×7 (10:04→11:17)
[2024-01-11] MEDS: HYDROmorphone HCL INJ (*CRX) 1 MG/ML SYR IV PUSH (12:02)
[2024-01-11] MEDS: SODIUM CHLORIDE 0.9% IV 1,000 ML 125 ML IV CONT (12:02)
--- NOTE | 2024-01-11 12:12 | ADMGEN ---
This patient, Osei Perkins, was admitted to 2 Medical Room 256-. Report recieved from ANURADHA Gaytan. Patient/family oriented to hospital policies and general routines including ID bracelet, bed and alarms, visiting hours, pain management, procedures, bathroom and other care routines, personal items, smoking policy, room service/diet, and visiting hours. Information on how to activate the Rapid Response Team has been discussed. Patient/Family are encouraged to report perceived risks to care and to ask questions if they do not understand what they are told or what they should do.
[2024-01-11] MEDS: HYDROcodone/acetaminophen (*CRX) 10-325 MG TABLET 1 TAB PO ×3 (13:57→23:33)
[2024-01-11] MEDS: CELECOXIB 200 MG CAPSULE PO (16:20)
[2024-01-11] MEDS: SENNA/DOCUSATE SODIUM TABLET 2 TAB PO (16:21)
[2024-01-11] MEDS: diazePAM (*CRX) 5 MG TABLET PO (16:21)
[2024-01-11] MEDS: RIVAROXABAN 10 MG TABLET PO (16:23)
[2024-01-11 16:54] LABS: Glucose Point of Care 170 mg/dl (65-105)
[2024-01-11] MEDS: TAMSULOSIN HCL 0.4 MG CAPSULE PO (20:36)
[2024-01-12 00:06] VITALS: BP 159/61; PULSE 79; RESP 14; TEMP 36.5; O2SAT 97
--- NOTE | 2024-01-12 02:14 | PC.NURSE ---
Around midnight patient sat up on the side of the bed, setting off the alarm, and began doing leg exercises. Pt states that he does not want to go back to bed, and gets up to sit in the chair, still doing ROM exercises. At 0210 patient set off chair alarm, and was sitting on the edge of the bed, angry, and yelled that he is going home right now. Patient states that he walks fine, and he shouldn't have to wait until 8am for PT to get here; he wants to leave now and then come back. Pt states this isn't how his last knee surgery went: I went to sleep and Dr. Galeano was there when I woke up . Patient reminded that it is 2am and he hasn't gone to sleep yet and this is only his first day/night here. Pt educated on importance of prophylactic antibiotics, pain medication, PT/OT. Pt appears dissatisfied with my answer but agrees to stay, and remains in bed with bed alarm set.
--- NOTE | 2024-01-12 05:06 | PC.NURSE ---
pt does remember incident from last night and apologized to this RN
[2024-01-12 05:30] VITALS: BP 161/58; PULSE 65; RESP 16; TEMP 36.7; O2SAT 98
[2024-01-12 06:18] LABS: Basophils Percent Auto 0.1 % (0.2-1.2); Hematocrit 30.9 % (42.0-52.0); Hemoglobin 10.3 g/dL (14.0-18.0); Immature Granulocyte Absolute 0.05 K/mm3 (0.00-0.031); Immature Granulocyte Percent A 0.5 % (0-0.5); Lymphocytes Absolute Auto 0.62 K/mm3 (0.9-3.2); Lymphocytes Percent Auto 6.1 % (18.3-44.2); Mean Corpuscular HGB Conc 33.3 g/dl (32-36); Mean Corpuscular Hemoglobin 30.1 pg (26-34); Mean Corpuscular Volume 90.4 fl (80-100); Mean Platelet Volume 9.9 fl (7.4-10.4); Monocytes Absolute Auto 0.6 K/mm3 (0.1-0.6); Monocytes Percent Auto 6.2 % (2.6-8.5); Neutrophils Absolute Auto 8.9 K/mm3 (1.3-6.7); Neutrophils Percent Auto 87.1 % (45.5-73.1); Platelet Count Result 223 k/mm3 (150-375); Red Blood Count 3.42 M/mm3 (4.6-6.20); Red Cell Distribution Width 14.6 % (11.5-14.5); White Blood Count 10.2 K/mm3 (4.5-10.0)
[2024-01-12 06:36] LABS: Anion Gap 8 mmol/L (4-12); Blood Urea Nitrogen 22 mg/dL (9-20); Calcium 8.7 mg/dL (8.4-10.2); Carbon Dioxide 24 mmol/L (22-30); Chloride 109 mmol/L (98-107); Estimated CRCL calculation 59 ml/min; Estimated Glomerular Filt Rate 59; Glucose 129 mg/dL (65-110); Potassium 3.8 mmol/L (3.4-5.0); Sodium 141 mmol/L (137-145)
--- NOTE | 2024-01-12 06:57 | PM.PNORT ---
Progress Note: A&P Assessment and Plan (1) History of knee replacement procedure of right knee: Code(s): Z96.651 - Presence of right artificial knee joint Status: Acute Assessment and Plan: Patient is status post knee replacement on the right knee for osteoarthritis. He is progressing normally. He does have some pain issues although he came in on hydrocodone 10 milligrams which makes it very difficult to get his pain under control. I have discussed this with him. Subjective Subjective Date/Time Seen: 01/12/24 06:57 Post Op day: 1 Principal diagnosis: Status post right total knee arthroplasty Review of Systems Musculoskeletal: Musculoskeletal: Reports arthralgias, Reports joint swelling and Reports stiffness Neurologic: Reports abnormal gait Exam Narrative: Patient is neurologically intact. His dressing is intact as well. He is able to ambulate with help. Objective Data Vital Signs Vital Signs: Vital Signs - 24 hr 01/11/24 09:42 01/11/24 09:56 01/11/24 10:00 Temperature 98.1 F Pulse Rate 72 68 71 Respiratory Rate 16 16 16 Blood Pressure 136/71 157/60 H 161/57 H Pulse Oximetry 97 98 99 Oxygen Delivery Simple Face Mask Simple Face Mask Simple Face Mask Oxygen Flow Rate 8 8 8 01/11/24 10:07 01/11/24 10:15 01/11/24 10:30 Temperature Pulse Rate 63 63 Respiratory Rate 14 14 Blood Pressure 141/55 H 163/61 H Pulse Oximetry 95 96 96 Oxygen Delivery Room Air Room Air Room Air Oxygen Flow Rate 01/11/24 10:45 01/11/24 11:00 01/11/24 11:15 Temperature Pulse Rate 63 62 63 Respiratory Rate 14 14 12 Blood Pressure 162/67 H 159/74 H 130/95 H Pulse Oximetry 96 96 97 Oxygen Delivery Room Air Room Air Room Air Oxygen Flow Rate 01/11/24 11:50 01/11/24 12:05 01/11/24 12:35 Temperature 97.7 F 97.7 F 97.7 F Pulse Rate 64 62 63 Respiratory Rate 14 14 15 Blood Pressure 159/47 H 148/64 H 156/45 H Pulse Oximetry 99 99 100 Oxygen Delivery Oxygen Flow Rate 01/11/24 13:17 01/11/24 13:35 01/11/24 14:05 Temperature 97.7 F Pulse Rate 73 Respiratory Rate 15 Blood Pressure 172/49 H Pulse Oximetry 100 Oxygen Delivery Room Air Room Air Oxygen Flow Rate 01/11/24 17:11 01/11/24 19:59 01/11/24 20:00 Temperature 97.6 F 98.5 F Pulse Rate 70 72 Respiratory Rate 16 16 Blood Pressure 162/52 H 147/68 H Pulse Oximetry 100 97 Oxygen Delivery Room Air Oxygen Flow Rate 01/12/24 00:06 01/12/24 05:30 Temperature 97.7 F 98.1 F Pulse Rate 79 65 Respiratory Rate 14 16 Blood Pressure 159/61 H 161/58 H Pulse Oximetry 97 98 Oxygen Delivery Oxygen Flow Rate Intake/Output Intake/Output: Intake & Output 01/09/24 01/10/24 01/11/24 01/12/24 23:59 23:59 23:59 23:59 Intake Total 1210 50 Output Total 550 Balance 660 50 Meds/Results Medications: Active Medications Generic Name Dose Route Start Last Admin Trade Name Freq PRN Reason Stop Dose Admin Hydrocodone Bitart/Acetaminophen 1 tab 01/11/24 11:26 Hydrocodone/Acetaminophen (*Crx) 5-325 Mg Tablet PO Q4H PRN Pain Rated 4-6 Hydrocodone Bitart/Acetaminophen 1 tab 01/11/24 11:26 01/11/24 23:33 Hydrocodone/Acetaminophen (*Crx) 10-325 Mg Tablet PO 1 tab Q4H PRN Administration Pain Rated 7-10 Amlodipine Besylate 10 mg 01/12/24 09:00 Amlodipine Besylate 10 Mg Tablet PO DAILY KT Atorvastatin Calcium 40 mg 01/12/24 09:00 Atorvastatin 40 Mg Tablet PO DAILY KT Celecoxib 200 mg 01/11/24 17:00 01/11/24 16:20 Celecoxib 200 Mg Capsule PO 200 mg BIDWM KT Administration Diazepam 5 mg 01/11/24 11:26 01/11/24 16:21 Diazepam (*Crx) 5 Mg Tablet PO 5 mg BID PRN Administration Anxiety Diphenhydramine HCl 25 mg 01/11/24 11:26 Diphenhydramine Hcl Inj 50 Mg/Ml Vial IV PUSH Q6H PRN Itching Finasteride 5 mg 01/12/24 09:00 Finasteride 5 Mg Tablet PO DAILY KT Hydromorphone HCl 1 mg 01/11/24 11:26 01/11/24 12:02 Hydromorphone Hcl Inj (*Crx) 1 Mg/Ml Syr IV PUSH 1 mg Q2H PRN Administration Breakthrough Pain Rated 7-10 or NPO Hydromorphone HCl 0.5 mg 01/11/24 11:26 Hydromorphone Hcl Inj (*Crx) 1 Mg/Ml Syr IV PUSH Q2H PRN Breakthrough Pain Rated 4-6 or NPO Cefazolin Sodium 2 gm in 50 mls @ 100 mls/hr 01/11/24 16:00 01/12/24 00:06 Ancef 2 Gm/D5w 50 Ml IVPB 01/12/24 08:29 Infused Q8H KT Infusion Ibuprofen 800 mg in 200 mls @ 400 mls/hr 01/11/24 11:26 Caldolor 800 Mg/200 Ml IVPB Q6H PRN Breakthrough Pain Rated 1-3 or NPO Losartan Potassium 50 mg 01/12/24 09:00 Losartan Potassium 50 Mg Tablet PO DAILY KT Naloxone HCl 0.1 mg 01/11/24 11:26 Naloxone Hcl 0.4 Mg/Ml Vial IV PUSH Q2M PRN Opiate Reversal Ondansetron HCl 4 mg 01/11/24 11:26 Ondansetron Inj 4 Mg/2 Ml Vial IV PUSH Q4H PRN Nausea And Vomiting Polyethylene Glycol 17 gm 01/12/24 09:00 Polyethylene Glycol 3350 17 Gm Powd.Pack PO QAM [facility] Rivaroxaban 10 mg 01/11/24 17:00 01/11/24 16:23 Rivaroxaban 10 Mg Tablet PO 01/22/24 17:01 10 mg DAILY@17 [facility] Administration Senna/Docusate Sodium 2 tab 01/11/24 17:00 01/11/24 16:21 Senna/Docusate Sodium Tablet PO 2 tab BID KT Administration Tamsulosin HCl 0.4 mg 01/11/24 21:00 01/11/24 20:36 Tamsulosin Hcl 0.4 Mg Capsule PO 0.4 mg QHS KT Administration Tramadol HCl 50 mg 01/11/24 11:26 Tramadol Hcl (*Crx) 50 Mg Tablet PO Q4H PRN Pain Rated 1-3 Radiology Results: ITS Impressions Knee X-Ray 01/11/24 09:57 IMPRESSION: 1. Total right knee arthroplasty in near-anatomic alignment. Labs Labs: Laboratory Results - last 24 hr 01/11/24 01/12/24 16:51 06:06 WBC 10.2 H RBC 3.42 L Hgb 10.3 L D Hct 30.9 L MCV 90.4 MCH 30.1 MCHC 33.3 RDW 14.6 H Plt Count 223 MPV 9.9 Immature Gran % (Auto) 0.5 Neut % (Auto) 87.1 H Lymph % (Auto) 6.1 L [place] % (Auto) 6.2 Eos % (Auto) 0.0 Baso % (Auto) 0.1 L Lymph # (Auto) 0.62 L [place] # (Auto) 0.6 Eos # (Auto) 0.0 Baso # (Auto) 0.0 Abs Immat Gran (auto) 0.05 H Absolute Neuts (auto) 8.9 H Absolute Nucleated RBC 0.000 Nucleated RBC % 0.0 Sodium 141 Potassium 3.8 Chloride 109 H Carbon Dioxide 24 Anion Gap 8 BUN 22 H Creatinine 1.20 Estim Creat Clear Calc 59 Estimated GFR 59 Glucose 129 H POC Capillary Glucose 170 H Calcium 8.7
--- NOTE | 2024-01-12 06:59 | P.DS_ITS ---
DS: Admitting Diagnosis Discharge Date 01/13/2024 Admitting Diagnosis Osteoarthritis right knee DS: Discharge Diagnosis Discharge Diagnosis (1) History of knee replacement procedure of right knee: Code(s): Z96.651 - Presence of right artificial knee joint Status: Acute Plan Right total knee arthroplasty for osteoarthritis. He has progressed slowly inhibited somewhat by pain however he was ambulatory. DS: Summary Hospital Course Hospital Course: Patient underwent total knee arthroplasty for arthritis right knee. He is progressing slowly because of pain issues. He is able ambulate neurologically he is intact. I think if he does well in therapy he can go home today. Will plan on this. Discussed. Status at Discharge Functional status at discharge: uses cane/walker Time Spent with Patient Time attestation: Total time spent providing and/or coordinating discharge services: Exam Narrative: Neurologically the patient is intact. He can wiggle his toes. He is ambulatory with help and a walker. His dressing is dry and intact. Eyes: General: appearance normal, both eyes and all related structures Neck: Neck: supple Resp: Effort & Inspection: normal respiratory effort Cardio: Rate: regular rate Rhythm: regular rhythm DS: Data Data Completed and Pending Labs on day of discharge: Labs from last 24 hours 01/12/24 01/11/24 06:06 16:51 WBC 10.2 H RBC 3.42 L Hgb 10.3 L D Hct 30.9 L MCV 90.4 MCH 30.1 MCHC 33.3 RDW 14.6 H Plt Count 223 MPV 9.9 Immature Gran % (Auto) 0.5 Neut % (Auto) 87.1 H Lymph % (Auto) 6.1 L [place] % (Auto) 6.2 Eos % (Auto) 0.0 Baso % (Auto) 0.1 L Lymph # (Auto) 0.62 L [place] # (Auto) 0.6 Eos # (Auto) 0.0 Baso # (Auto) 0.0 Abs Immat Gran (auto) 0.05 H Absolute Neuts (auto) 8.9 H Absolute Nucleated RBC 0.000 Nucleated RBC % 0.0 Sodium 141 Potassium 3.8 Chloride 109 H Carbon Dioxide 24 Anion Gap 8 BUN 22 H Creatinine 1.20 Estim Creat Clear Calc 59 Estimated GFR 59 Glucose 129 H POC Capillary Glucose 170 H Calcium 8.7 Discharge Plan Discharge Patient Disposition: Home, Self-Care Discharge Instructions: Dr. Jovan Galeano M.D [address] [facility] [address] [place] [address] POST-OPERATIVE DISCHARGE INSTRUCTIONS TOTAL KNEE ARTHROPLASTY 1. When resting, do not rest in the chair.When resting, lie on your back, with back flat on the couch or bed, with leg elevated above heart to minimize swelling. You may put a pillow under your head. . Significant swelling could indicate a blood clot and if this occurs call the office (or go to the ER) to have a venous ultrasound. Therefore, do not rest in a chair. 2. At least five times a day spend several minutes stretching your knee into flexion while sitting in the chair and also stretching your knee out straight The abilities to bend your knee fulling and straighten your knee fully are two most important knee functions to focus on during your recovery. 3. It is ok to sit in chair to eat, use the toilet and receive a guest and to do your stretching exercises, but, sitting in a chair will cause your leg to swell. Therefore, avoid additional time sitting in the chair. and don't rest in the chair. 4. Wound Care: Nursing will give you an additional Mepilex dressing at the time of discharge. Patient to remove the dressing and apply a new Mepilex dressing at home 7 days after surgery and leave the dressing on until seen in office. 5. May shower with a Mepilex dressing in place.The water will run off the dressing. 6. Unless you are told otherwise, you may put full weight on your operated leg. Use a walker for balance and practice walking as normally as you can, ideally for a few minutes every hour while you are awake. 7. I would advise against putting ice packs on your knee incision. Ice constricts blood flow which can impar healing of the knee incision. IMPORTANT: Remember not to sit in the chair for more than 30 minutes at a time. As a rule, during the first 14 days after surgery, only sit in the chair to work on the chair knee bending stretch exercise, for meals or for use of the restroom. Sitting in the chair promotes significant swelling in the knee and leg which will make your knee stiff and more painful and which simulates having a blood clot in the veins of the leg. If this type of significant diffuse swelling occurs, an ultrasound at the hospital will be necessary to rule out a blood clot. Be up walking around with the walker for a few minutes every hour while awake and then rest laying on your back on the couch or in bed with your leg elevated on cushions or pillows. Do not rest in the chair. Stand Alone Forms: General Discharge Instructions Follow-up/Referrals: Jovan Galeano MD [Physician] - Discharge Medications: New doxycycline hyclate 100 mg tablet 100 mg PO DAILY Qty: 10 0RF hydrocodone-acetaminophen 7.5-325 mg tablet 1 tablet PO Q4H PRN (Reason: pain) Qty: 40 0RF cyclobenzaprine 10 mg tablet 10 mg PO HS PRN (Reason: muscle spasm) Qty: 30 0RF Continued finasteride 5 mg tablet 5 mg PO DAILY amlodipine 10 mg tablet 10 mg PO DAILY atorvastatin 40 mg tablet 40 mg PO DAILY fenofibrate 160 mg tablet 160 mg PO DAILY tamsulosin 0.4 mg capsule 0.4 mg PO QHS diazepam 5 mg tablet 5 mg PO BID PRN (Reason: Anxiety) losartan 50 mg tablet 50 mg DAILY hydrocodone-acetaminophen 10-325 mg tablet 1 tablet PO Q6H PRN (Reason: pain) Qty: 30 0RF
[2024-01-12] MEDS: SENNA/DOCUSATE SODIUM TABLET 2 TAB PO (08:16)
[2024-01-12] MEDS: HYDROcodone/acetaminophen (*CRX) 10-325 MG TABLET 1 TAB PO (08:16)
[2024-01-12] MEDS: LOSARTAN POTASSIUM 50 MG TABLET PO (08:17)
[2024-01-12] MEDS: ATORVASTATIN 40 MG TABLET PO (08:17)
[2024-01-12] MEDS: amLODIPine BESYLATE 10 MG TABLET PO (08:17)
[2024-01-12] MEDS: polyethylene glycoL 3350 17 GM POWD.PACK PO (08:17)
[2024-01-12] MEDS: FINASTERIDE 5 MG TABLET PO (08:17)
[2024-01-12] MEDS: CELECOXIB 200 MG CAPSULE PO (08:17)
[2024-01-12 09:11] VITALS: BP 155/54; PULSE 79; RESP 17; TEMP 36.8; O2SAT 97
[2024-01-12] MEDS: ceFAZolin 2 GM/D5W 50 ML 2 GM/50 ML BAG IVPB (09:30)
--- NOTE | 2024-01-12 14:06 | PM.IMPN ---
Progress Note: A&P Assessment and Plan (1) History of knee replacement procedure of right knee: Code(s): Z96.651 - Presence of right artificial knee joint Status: Acute Assessment and Plan: Pain well controlled. Continue current pain management PT/OT (2) Osteoarthritis of right knee: Code(s): M17.11 - Unilateral primary osteoarthritis, right knee Status: Acute Assessment and Plan: As above (3) Hypertension: Code(s): I10 - Essential (primary) hypertension Status: Acute Assessment and Plan: Patient's blood pressure was reviewed on 01/11 Blood pressure mildly elevated probably related to pain Will continue current medications and follow (4) Hyperlipidemia: Code(s): E78.5 - Hyperlipidemia, unspecified Status: Acute Assessment and Plan: Stable. Continue Lipitor Plan DVT prophylaxis - Xarelto Subjective Date/time seen: 01/12/24 14:06 Interval history: 78yo male with heart disease, HLD and HTN here for elective knee replacement. Pain controlled. No CP or SOB. Has done steps earlier this morning. Exam Narrative: AF 98.2 155/54 79 17 97% ra Gen - NARD Chest - CTA bilaterally, nml RR CV - RRR S1/S2 Abd - Soft, NT/ND, Positive BS Ext - No pedal edema. Rohan hose in place. Right knee dressing clean, dry and intact. Psych - Nml mood and affect Skin - Warm and dry Objective Data Vital Signs Vital Signs: Vital Signs - 24 hr 01/11/24 17:11 01/11/24 19:59 01/11/24 20:00 Temperature 97.6 F 98.5 F Pulse Rate 70 72 Respiratory Rate 16 16 Blood Pressure 162/52 H 147/68 H Pulse Oximetry 100 97 Oxygen Delivery Room Air 01/12/24 00:06 01/12/24 05:30 01/12/24 09:11 Temperature 97.7 F 98.1 F 98.2 F Pulse Rate 79 65 79 Respiratory Rate 14 16 17 Blood Pressure 159/61 H 161/58 H 155/54 H Pulse Oximetry 97 98 97 Oxygen Delivery Intake/Output Intake/Output: Intake & Output 01/09/24 01/10/24 01/11/24 01/12/24 23:59 23:59 23:59 23:59 Intake Total 1210 392 Output Total 550 Balance 660 392 Meds/Results Radiology Results: ITS Impressions Knee X-Ray 01/11/24 09:57 IMPRESSION: 1. Total right knee arthroplasty in near-anatomic alignment. Labs Labs: Laboratory Results - last 24 hr 01/11/24 01/12/24 16:51 06:06 WBC 10.2 H RBC 3.42 L Hgb 10.3 L D Hct 30.9 L MCV 90.4 MCH 30.1 MCHC 33.3 RDW 14.6 H Plt Count 223 MPV 9.9 Immature Gran % (Auto) 0.5 Neut % (Auto) 87.1 H Lymph % (Auto) 6.1 L [place] % (Auto) 6.2 Eos % (Auto) 0.0 Baso % (Auto) 0.1 L Lymph # (Auto) 0.62 L [place] # (Auto) 0.6 Eos # (Auto) 0.0 Baso # (Auto) 0.0 Abs Immat Gran (auto) 0.05 H Absolute Neuts (auto) 8.9 H Absolute Nucleated RBC 0.000 Nucleated RBC % 0.0 Sodium 141 Potassium 3.8 Chloride 109 H Carbon Dioxide 24 Anion Gap 8 BUN 22 H Creatinine 1.20 Estim Creat Clear Calc 59 Estimated GFR 59 Glucose 129 H POC Capillary Glucose 170 H Calcium 8.7
== END 2024-01-12 11:40 | disposition home or self-care (01) ==
LOC: ANHSURGERY 05:43 → ANH2MED 11:44
PROVIDERS: PCP Internal Medicine; Visit Provider Orthopaedic Surgery
PROC: (CPT 27447; principal; 2024-01-11 07:30)
DX: M17.11 Unilateral primary osteoarthritis, right knee (principal); G89.18 Other acute postprocedural pain; E78.5 Hyperlipidemia, unspecified; I11.9 Hypertensive heart disease without heart failure; N42.9 Disorder of prostate, unspecified; E66.9 Obesity, unspecified; Z68.36 Body mass index [BMI] 36.0-36.9, adult; Z79.891 Long term (current) use of opiate analgesic; Z98.890 Other specified postprocedural states; Z87.891 Personal history of nicotine dependence; Z80.9 Family history of malignant neoplasm, unspecified; Z82.49 Family history of ischemic heart disease and other diseases of the circulatory system
CPT/HCPCS: 64447; 27447; 36415; 73560; 80048; 82948; 85025; 97110; 97116; 97161; 97165; 97530; 97535; A9270; C1713; C1776; J0171; J0690; J1100; J1171; J1885; J2003; J2250; J2270; J2405; J2704; J2795; J3010; J3370; J7030; J7120